=== PATIENT | female | born 1990 | race Caucasian/White ===

== ENCOUNTER 2020-01-12 17:14 | Emergency (ER) | payer BC, OTHER ==
[~2020-01-12] VITALS: Ht 157.5 cm; Wt 79.4 kg
--- OUTSIDE RECORDS SUMMARY | 2020-01-12 17:16 | XMS REPORT ---
Author Author [facility] Organization [facility] Address Unknown Phone Unavailable Care Team Providers Care Nutrient Management Specialist Name Role Phone Unavailable Unavailable Payers Payer Name Policy Type Policy Number Effective Date Expiration D ate Problems This patient has no known problems. Allergies, Adverse Reactions, Alerts Allergy Name Allergy Type Status Severity Reaction(s) Onset Date Inacti ve Date Treating Clinician Comments No Known Allergies DA Active U 2019-05-27 00:00:00 No Known Allergies DA Active U 2016-07-26 00:00:00 Medications This patient has no known medications.
--- OUTSIDE RECORDS SUMMARY | 2020-01-12 17:16 | XMS REPORT | Continuity of Care Document ---
Author Author Haydee Bearden [employer] SELIN Patel [employer] Address Unknown Phone Unavailable Care Team Providers Care Primary Care Provider Name Role Phone [employer] Unavailable Un available Problems No Data Provided for This Section Medications No Data Provided for This Section Allergies, Adverse Reactions, Alerts No Known Medication Allergies Immunizations No Data Provided for This Section Results No Data Provided for This Section Pathology Reports No Data Provided for This Section Diagnostic Reports No Data Provided for This Section Consultation Notes No Data Provided for This Section Discharge Summaries No Data Provided for This Section History and Physicals No Data Provided for This Section Vital Signs No Data Provided for This Section Encounters Location Location Details Encounter Type Encounter Number Reason For Visit Attending Provider ADM Date DC Date Status Source Outpatient [id number] Wu Garcia 01/04/2020 Active [facility] Procedures No Data Provided for This Section Assessment and Plan No Data Provided for This Section Plan of Care No Data Provided for This Section Social History No Data Provided for This Section Family History No Data Provided for This Section Advance Directives No Data Provided for This Section Functional Status No Data Provided for This Section
--- OUTSIDE RECORDS SUMMARY | 2020-01-12 17:16 | XMS REPORT ---
Author Author Admin, Camilla Sharp Organization Unknown Address Unknown Phone Unavailable Problems No Known Problems ENCOUNTERS Date Type Provider Location Encounter Diagn osis - Ambulatory Encounter Dave Quinn [facility]K - Ambulatory Encounter Ernestine lyles [facility] UNK - Ambulatory Encounter Not Yet Neelam love Responsible Provider [facility] UNK - Ambulatory Encounter Not Yet Neelam love Responsible Provider [facility] UNK - Ambulatory Encounter [facility] UNK VITAL SIGNS No Information Available Allergies No Known Allergy Information REASON FOR REFERRAL No Information Available RESULTS No Information Available HISTORY OF IMMUNIZATIONS No Information Available Medications No Known Medication Information SOCIAL HISTORY No Information Available FUNCTIONAL STATUS No Information Available MENTAL STATUS No Information Available MEDICAL EQUIPMENT No Information Available FAMILY HISTORY No Information Available INSURANCE PROVIDERS Payer name Policy type / Coverage type Covered part y ID Sliding Fee - Cat 1 [employer] [id number] Title X Other [id number] ADVANCE DIRECTIVES No Information Available TREATMENT PLAN No Information Available HISTORY OF PROCEDURES No Information Available GOALS No Information Available HEALTH CONCERNS No Information Available
--- NOTE | 2020-01-12 18:50 | Diagnostic Imaging Report ---
EXAMINATION: CHEST SINGLE (PORTABLE) COMPARISON: None INDICATION: Shortness of breath, cough ^Y ^sob ^[id number] ^1800 DISCUSSION: Frontal view of the chest obtained at 1815 hours. HEART AND MEDIASTINUM: The cardiomediastinal silhouette is unremarkable. LINES: None. LUNGS: The lungs are well inflated and clear. No pneumonia or pulmonary edema. PLEURA: No pleural effusion or pneumothorax. BONES AND SOFT TISSUES: No focal osseous lesion. The soft tissues are normal. IMPRESSION: No acute cardiopulmonary disease. Signed by: Dr. Luis Armando Calero MD on 01/12/2020 6:47 PM
== END 2020-01-12 19:01 | disposition home or self-care (01) ==
LOC: ER 17:14
DX: J03.00 Acute streptococcal tonsillitis, unspecified (principal); F41.9 Anxiety disorder, unspecified; F32.9 Major depressive disorder, single episode, unspecified
CPT/HCPCS: 71045; 83518; 87070; 87635; 99282

== ENCOUNTER 2020-01-18 21:17 | Emergency (ER) | payer OTHER ==
[~2020-01-18] VITALS: Ht 157.5 cm; Wt 79.4 kg
--- OUTSIDE RECORDS SUMMARY | 2020-01-18 21:19 | XMS REPORT | Continuity of Care Document ---
Author Author Haydee Bearden [employer] SELIN Patel [employer] Address Unknown Phone Unavailable Care Team Providers Care Medication Coordinator Name Role Phone [employer] Unavailable Un available Problems No [...] ADM Date DC Date Status Source Outpatient [id number] Wu Garcia 01/04/2020 Active [facility] Procedures No Data Provided for This Section [...]
--- OUTSIDE RECORDS SUMMARY | 2020-01-18 21:20 | XMS REPORT ---
Author Author [facility] t Organization [facility] Address [address] [place] [address] Phone Unavailable Care Team Providers Care Pci Security Consultant Name Role Phone NO, PCP PCP Unavailable Blossom COPE Attphys Unavailable Payers Payer Name Policy Type Policy Number Effective Date Expiration Date S ource Advance Directives Directive Decision Effective Date Termination Date Comments Sour ce Yes N/A [facility] Problems Condition Name Condition Details Condition Category Status Onset Date Resolution Date Last Treatment Date Treating Clinician Comments Source Chest pain Problem [facility] Allergies, Adverse Reactions, Alerts Allergy Name Allergy Type Status Severity Reaction(s) Onset Date Inacti ve Date Treating Clinician Comments Source cyclobenzaprine HCl Allergy to substance Active 2020-01-12 00:00:00 [facility] No Known Allergies DA Active U 2019-05-27 00:00:00 [facility] No Known Allergies DA Active U 2016-07-26 00:00:00 [facility] Social History Social Habit Start Date Stop Date Quantity Comments Source Sex Assigned At 1990 00:00:00 1990 00:00:00 Female [facility] Medications This patient has no known medications. Vital Signs Vital Name Observation Time Observation Value Comments Source Weight 2020-01-12 17:27:00 175 [lb_av] [facility] BMI (Body Mass Index) 2020-01-12 17:27:00 32.0 kg/m2 [facility] Procedures This patient has no known procedures. Plan of Care Planned Activity Planned Date Details Comments Source Future Scheduled Test [code = ] Goal Patient referral [code = 6596025 ] [facility] Instructions Tonsillitis - Adult [facility] Encounters Start Date/Time End Date/Time Encounter Type Admission Type [facility] Care Department Encounter ID Source 2020-01-12 17:14:00 2020-01-12 19:01:00 Departed Emergency Room 1 BETTINA COPE [facility] [id number] [facility] Results Test Description Test Time Test Comments Results Result Comments Source CHEST SINGLE (PORTABLE) 2020-01-12 18:46:00 [facility] [address] [address] Patient Name: SELIN LIMON MR #: [id number] : 1990 Age/Sex: 29/F Req #: [id number] Adm Physician: Ordered by: CHUCK MCFARLANE ELECTROMECHANICAL INSPECTOR Report #: [id number] Location: ER Room/Bed: Procedure: [id number] DX/CHEST SINGLE (PORTABLE) Exam Date: 01/12/20 Exam Time: 1800 REPORT STATUS: Signed EXAMINATION: CHEST SINGLE (PORTABLE) COMPARISON: None INDICATION: Shortness of breath, cough Y sob [id number] DISCUSSION: Frontal view of the chest obtained at 1815 hours. HEART AND MEDIASTINUM: The cardiomediastinal silhouette is unremarkable. LINES: None. LUNGS: The lungs are well inflated and clear. No pneumonia or pulmonary edema. PLEURA: No pleural effusion or pneumothorax. BONES AND SOFT TISSUES: No focal osseous lesion. The soft tissues are normal. IMPRESSION: No acute cardiopulmonary disease. Signed by: Dr. Kobe Calero MD on 01/12/2020 6:47 PM D ictated By: KOBE CALERO MD 46 Transcribed By: KRIS on 01/12/201846 COPY TO: CHUCK MCFARLANE NP Streptococcus pyogenes antigen detection in throat 6 17:18:00 Test Item Group A Streptococcus Screen (test code = 40873-4) NEGATIVE [facility]
[2020-01-18] MEDS ORDERED: MORPHINE SULFATE INJ 4 MG/ML INJ 1ML IM STA (21:31)
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
[2020-01-19] MEDS ORDERED: MORPHINE SULFATE INJ 4 MG/ML INJ 1ML IM STA (00:01)
[2020-01-19 00:54] VITALS: BP 122/82
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
--- NOTE | 2020-01-19 02:34 | Diagnostic Imaging Report ---
Left elbow 4 views HISTORY: Pain. COMPARISON: None available. FINDINGS: Bones: Acute nondisplaced linear fracture of the radial head. Osseous alignment is within normal limits. Joints: The joint spaces are well-maintained. Soft tissues: Elbow joint effusion. Linear radiopaque object projects over the volar soft tissues of the upper arm. IMPRESSION: 1. Acute nondisplaced linear fracture of the left radial head. 2. Elbow joint effusion. Signed by: Wilfredo Lovelace MD on 01/19/2020 2:25 AM
== END 2020-01-19 01:52 | disposition home or self-care (01) ==
LOC: ER 21:17
DX: S52.122A Displaced fracture of head of left radius, initial encounter for closed fracture (principal); S00.83XA Contusion of other part of head, initial encounter; Y04.8XXA Assault by other bodily force, initial encounter; F41.9 Anxiety disorder, unspecified
CPT/HCPCS: 29125; 70486; 73080; 99284; J2270 ×2

== ENCOUNTER 2022-03-04 17:22 | Emergency (ER) | payer MEDICARE, OTHER ==
[~2022-03-04] VITALS: Ht 160 cm; Wt 90.7 kg
[2022-03-04] MEDS ORDERED: PERIDEX473 M1 PO (18:14)
[2022-03-04] MEDS ORDERED: IBUPROFEN600 MG PO (18:14)
[2022-03-04] MEDS ORDERED: CLEOCIN HCL300 MG PO (18:14)
== END 2022-03-04 18:23 | disposition home or self-care (01) ==
LOC: ER 17:23
DX: A69.1 Other Vincent's infections (principal); F17.200 Nicotine dependence, unspecified, uncomplicated; Z88.8 Allergy status to other drugs, medicaments and biological substances
CPT/HCPCS: 99283

== ENCOUNTER 2022-03-13 20:28 | Emergency (ER) | payer MEDICARE, OTHER ==
[~2022-03-13] VITALS: Ht 160 cm; Wt 90.7 kg
[~2022-03-13 20:28] MED LIST: CLEOCIN HCL300 MG PO; IBUPROFEN600 MG PO; PERIDEX473 M1 PO
[2022-03-13] MEDS ORDERED: ACETAMINOPHEN 325 MG TAB PO ONE (21:15)
[2022-03-13] MEDS ORDERED: ACETAMINOPHEN 325 MG TAB ONE (21:23)
== END 2022-03-13 21:19 | disposition home or self-care (01) ==
LOC: ER 20:34
DX: R50.9 Fever, unspecified (principal); K02.9 Dental caries, unspecified; K05.10 Chronic gingivitis, plaque induced
CPT/HCPCS: 99283